=== PATIENT | female | born 1960 | race Two or more races ===

== ENCOUNTER 2019-01-24 09:30 | Emergency (ER) | payer OTHER ==
[~2019-01-24] VITALS: Ht 157.5 cm; Wt 63.5 kg
--- NOTE | 2019-01-24 10:00 | NUR ---
Patient discharged to home in stable conditon. Written and verbal after care instructions given. Patient verbalizes understanding of instructions.
== END 2019-01-24 10:00 | disposition home or self-care (01) ==
LOC: ER 09:33
DX: H10.9 Unspecified conjunctivitis (principal)
CPT/HCPCS: A4663

== ENCOUNTER 2020-07-23 00:04 | Emergency (ER) | payer OTHER ==
[~2020-07-23] VITALS: Ht 167.6 cm; Wt 74.8 kg
[2020-07-23] MEDS ORDERED: ACETAMINOPHEN 325 MG TABLET PO ONE (00:15)
--- NOTE | 2020-07-23 00:22 | NUR ---
Xray at bedside
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
[2020-07-23] MEDS ORDERED: ACETAMINOPHEN 325 MG TABLET ONE (00:24)
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
[2020-07-23] MEDS ORDERED: BACLOFEN 10 MG TABLET PO ONE (00:30)
[2020-07-23] MEDS ORDERED: BACLOFEN 10 MG TABLET ONE (00:36)
[2020-07-23] MEDS ORDERED: LIDOCAINE 5% PATCH TD ONE (00:36)
[2020-07-23] MEDS: LIDOCAINE 5% PATCH TD ONE ×2 (00:38→00:39)
--- NOTE | 2020-07-23 01:57 | NUR ---
Patient discharged to home in stable condition. Written and verbal after care instructions given. Patient verbalizes understanding of instructions. Stressed follow up or return to ER for worsening s/s. Pt. stable, vss, walks with steady gait. All belongings went with pt.
[2020-07-23] MEDS ORDERED: ACET-2154 PO (02:03)
[2020-07-23] MEDS ORDERED: BACL10TA PO (02:03)
[2020-07-23 02:11] VITALS: BP 119/68
== END 2020-07-23 02:12 | disposition home or self-care (01) ==
LOC: ER 00:11
DX: S13.4XXA Sprain of ligaments of cervical spine, initial encounter (principal); S43.402A Unspecified sprain of left shoulder joint, initial encounter; S16.1XXA Strain of muscle, fascia and tendon at neck level, initial encounter; V49.50XA Passenger injured in collision with unspecified motor vehicles in traffic accident, initial encounter; Y92.414 Local residential or business street as the place of occurrence of the external cause; M25.561 Pain in right knee; M25.461 Effusion, right knee
CPT/HCPCS: 73030; 73562; A4663